=== PATIENT | female | born 1970 | race Caucasian/White ===

== ENCOUNTER 2020-01-30 16:19 | Emergency (ER) | payer OTHER ==
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
[2020-01-30 17:23] LABS: CHLORIDE,CL 102 mmol/L (98-107); SODIUM,NA 138 mmol/L (136-145)
[2020-01-30] MEDS ORDERED: Ketorolac 10 MG Tab PO ONE (17:55)
[2020-01-30] MEDS ORDERED: Diazepam 5 MG Tab PO ONE (17:55)
== END 2020-01-30 18:08 | disposition home or self-care (01) ==
LOC: LL.ED 16:19
DX: S80.11XA Contusion of right lower leg, initial encounter (principal); M25.551 Pain in right hip; R51.9 Headache, unspecified; Z88.0 Allergy status to penicillin; Z88.1 Allergy status to other antibiotic agents; Z88.8 Allergy status to other drugs, medicaments and biological substances; F17.210 Nicotine dependence, cigarettes, uncomplicated; Z98.51 Tubal ligation status; V89.2XXA Person injured in unspecified motor-vehicle accident, traffic, initial encounter
CPT/HCPCS: 36415; 72040; 72170; 73590; 80053; 85025; 99284; A9270; 99283

== ENCOUNTER 2020-09-20 04:54 | Emergency (ER) | payer OTHER ==
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
[2020-09-20] MEDS: Ketorolac 60 MG/2 ML SDV IM ONE (05:53)
[2020-09-20] MEDS: methylPREDNISolone Sodium Succinate 125 MG/2 ML SDV IM ONE (05:53)
== END 2020-09-20 06:00 | disposition home or self-care (01) ==
LOC: LL.ED 04:54
DX: M54.42 Lumbago with sciatica, left side (principal); Z88.0 Allergy status to penicillin; Z88.5 Allergy status to narcotic agent; Z91.048 Other nonmedicinal substance allergy status
CPT/HCPCS: 96372; 99283; J1885; J2930

== ENCOUNTER → 2022-01-29 | Emergency (ER) | payer SELFPAY ==
[~2022-01-29] MED LIST: Ondansetron 4 MG Tab.DIS PO ONE; Potassium Chloride 20 MEQ Tab.ER PO ONE; Sodium Chloride 0.9% 1,000 ML IV ONE
[2022-02-21 16:04] LABS: ANION GAP 16.2 meq/L (7-15); CHLORIDE,CL 101 mmol/L (98-107); ESTIMATED GFR 77 mL/min (>=60); SODIUM,NA 141 mmol/L (136-145)
[2022-02-21 16:06] LABS: RESPIRATORY SYNCYTIAL VIR NAA NEGATIVE (NEGATIVE)
[2022-02-21 16:07] LABS: CORONAVIRUS COVID-19 NAA POSITIVE (NEGATIVE)
== END ==
LOC: LL.ED 18:00
DX: U07.1 COVID-19 (principal); E86.0 Dehydration; E87.6 Hypokalemia
CPT/HCPCS: 0241U; 36415; 71045; 80053; 83605; 85025; 96360; 99284; A9270-GY; J7030